=== PATIENT | female | born 1990 | race Caucasian/White ===

== ENCOUNTER 2025-01-29 13:46 | Emergency (ER) | payer OTHER, SELFPAY ==
[2025-01-29 13:52] VITALS: BP 147/101
--- NOTE | 2025-01-29 14:56 | ED.GENMED ---
History of Present Illness
General
Chief Complaint: Musculo-Skeletal Complaint
Source: patient
Exam Limitations: none
Time Seen by Provider: 01/29/25 14:27
Nursing documentation reviewed up to this point in time: agreed with
History of Present Illness
History of Present Illness:
Patient is a 34-year-old female approximately 13 weeks reports Thursday 6 days ago she dropped a knife on the top of her left foot since then she has not been able to extend her left great toe. She does complain of a healing laceration to
the dorsal foot. She has not had this evaluated and presented to the ER today because now she has increased swelling. She denies any redness or drainage fever chills.
Past History
Past History
ED Past Medical History: Other (Polycystic ovary syndrome)
ED Past Surgical History: None
Social History
Tobacco: Non-smoker
Personal:
Living: with family
Phy Exam
General Physical Exam
General Presentation: no apparent distress
General age: appears stated age
General Skin: warm and dry
General Habitus: normal
General Mental: alert
General Hydration: appears well hydrated
Neurological Exam
Neurological Exam: alert and oriented x3
Musculoskeletal Exam
Musculoskeletal Exam: other (lle with strong pulses + healing laceration to dorsum foot to mid first/2nd MT minimal swelling no erythema no drainage ; + unable to fully flex or extend great toe on her own.)
Psychiatric Exam
Psychiatric Exam: normal mood/affect
Course
Orders/Labs/Results
Orders:
Orders
01/29/25 14:50
Foot, Left 3 View [CR Foot - Left Min 3 Views] Urgent
Comment:
Reason For Exam: trauma
01/29/25 15:38
Vital Signs- Treatment ONCE
Frequency: Once
01/29/25 16:18
Cephalexin Monohydrate [Keflex] 500 mg PO NOW STA
01/29/25 16:25
Cast Shoe Left-Treatment ONCE
Vital Signs
Initial and Last Documented VS:
Initial Vital Signs
Temp Pulse Resp BP Pulse Ox
98.7 F 122 18 147/101 99
01/29/25 13:52 01/29/25 13:52 01/29/25 13:52 01/29/25 13:52 01/29/25 13:52
Last Documented Vital Signs
Temp Pulse Resp BP Pulse Ox
98.7 F 91 17 118/78 97
01/29/25 15:56 01/29/25 15:56 01/29/25 15:56 01/29/25 15:56 01/29/25 15:56
MDM/Problems Addressed
Differential Diagnosis Includes:
Not limited to tendon injury infection
MDM/Problems Addressed:
As discussed patient is a 34-year-old female approximate 13 weeks presenting to the ER for evaluation. Patient dropped a knife on the dorsal aspect of her left foot approximately 5 days ago and since then has not been able to flex and
extend her great toe. She has a healing laceration to the great toe however there is mild swelling today. She denies any redness fever chills she is nontoxic. She has no no complaints. On exam she does have minimal swelling to the
dorsal aspect of the left foot with no erythema no redness but is not warm. She is not able to fully flex or extend the toe. I initially spoke with podiatry Dr. Pardo who does recommend that patient follow-up with Dr. Curtis. I did speak with
him he will see patient in the office this week. No bony injury on x-ray mild soft tissue swellin.
Will start on Keflex for mild swelling DC with cast shoe. I did review with patient that as per podiatry they will need close collaboration with her OB who is a septic tank service technician and Dr. Curtis was given this information. She is to return if any worsening
of symptoms
*Radiology
Radiology exam reviewed: radiology read reviewed
*Pulse Oximetry
SaO2: 99
Oxygen Mode of Delivery: Room air
Patient hypoxic: no
*Critical Care Note
Total Time (30-74mins, 75-104mins- exclusive of procedures): Not Applicable
Patient Management
Discussion with other providers: Supervisor [employer] (podiatry/[facility] and Ever )
ED Attending Note
-
Portions of this chart may have been created with voice recognition software.� Occasional wrong word or��sound alike� substitutions may have occurred due to the inherent limitations of voice recognition software.
Discharge Plan
Departure
Patient Disposition: Home (Routine Discharge)
Date of Disposition: 01/29/25
Time of Disposition: 16:25
Patient with high blood pressure during this ER visit?: Yes
Condition: Fair
Covid-19: Not Applicable
Discharge Problem:
tendon injury left foot
Instructions: BLOOD PRESSURE
Prescriptions:
New
cephalexin 500 mg capsule
500 mg PO Q6H Qty: 28 0RF
No Action
doxycycline hyclate 100 MG capsule
100 mg PO Q12
Lactobac 2-Bifido 1-S. therm [High Potency Probiotic] 1 CAP capsule
1 cap PO DAILY
Referrals:
Chris Curtis DPM [Active, Podiatry]
Taina Blakely CRNP [Family Provider, Family Practice]
Activity Restrictions/Additional Instructions:
As discussed start antibiotics every 6 hours you were given the first dose here in the ER. Please call podiatry early in the morning to make an appointment soon as possible for tendon injury.
You may wear Shoe for support. Return if any worsening of symptoms of increased pain swelling redness red streaking fever chills.
Interventions
Interventions:
*Risk Screen - Suicide Last Done: 01/29/25 13:52
*General Assessment Last Done: 01/29/25 15:14
*Neglect/Abuse Screening Last Done: 01/29/25 13:52
*ED- Fall Risk Assessment Last Done: 01/29/25 15:14
*ED COVID-19 Vaccine History Last Done: 01/29/25 15:14
ED-Musculoskeletal Assessment Last Done: 01/29/25 15:13
Discharge Date and Time
Print Language: LAO
[2025-01-29 15:13] VITALS: BMI 32.4
[2025-01-29 15:56] VITALS: BP 118/78
[2025-01-29] MEDS: KEFLEX 500 MG PO (16:45)
--- NOTE | 2025-01-29 17:02 | EDRN ---
Reviewed discharge instructions with patient. Verbalized understanding. Ambulated with steady gait to the lobby.
[2025-01-29 17:03] VITALS: BP 114/76
== END 2025-01-29 17:04 | disposition home or self-care (01) ==
LOC: EMR 13:46
PROVIDERS: EMERGENCY PHYSICIAN Emergency Medicine; FAMILY PHYSICIAN Nurse Practitioner Family
DX: O9A.211 Injury, poisoning and certain other consequences of external causes complicating pregnancy, first trimester (principal); S91.312A Laceration without foreign body, left foot, initial encounter; S96.902A Unspecified injury of unspecified muscle and tendon at ankle and foot level, left foot, initial encounter; W26.0XXA Contact with knife, initial encounter; Z3A.13 13 weeks gestation of pregnancy
CPT/HCPCS: 99283; 73630

== ENCOUNTER 2025-02-02 06:18 | Day surgery (SDC) | payer OTHER, SELFPAY ==
[2025-02-02 12:50] VITALS: BMI 30.5
[2025-02-02 12:51] VITALS: BMI 30.5
[2025-02-02] MEDS: NORMOSOL-R/PLASMALYTE-A 1000 IV (12:53)
[2025-02-02 12:55] VITALS: BP 144/89
--- NOTE | 2025-02-02 13:44 | PTCARENOTE ---
requested by dr barr to obtain pre op hearts. hearts 155. will return post op.
[2025-02-02 15:28] VITALS: BP 121/77
[2025-02-02 15:30] VITALS: BP 132/88
[2025-02-02 15:42] VITALS: BP 130/82
[2025-02-02 15:45] VITALS: BP 126/75
--- NOTE | 2025-02-02 15:50 | PTCARENOTE ---
hearts 160 post op
[2025-02-02 16:00] VITALS: BP 134/94
== END 2025-02-02 16:28 | disposition home or self-care (01) ==
LOC: SDS 06:18
PROVIDERS: ATTENDING PHYSICIAN Student in an Organized Health Care Education/Training Program
DX: S96.122A Laceration of muscle and tendon of long extensor muscle of toe at ankle and foot level, left foot, initial encounter (principal); W26.0XXA Contact with knife, initial encounter
CPT/HCPCS: 28208; C1713